=== PATIENT | male | born 1940 | race Caucasian/White ===

== ENCOUNTER 2017-03-02 22:03 | Emergency (ER) | payer OTHER ==
[2017-03-02] MEDS ORDERED: CEPHALEXIN 500 MG CAP PO ONE ×2 (23:32→23:33)
[2017-03-02] MEDS ORDERED: SULFAMETHOX/TMP 800/160 MG 1 TAB PO ONE (23:34)
--- NOTE | 2017-03-02 23:35 | EDPHY ---
H & P Stated Complaint: bug bite yesterday blistered and worsening Time Seen by Provider: 03/02/17 23:29 HPI/ROS: Chief Complaint: Bee sting left foot, swelling, redness HPI: 76-year-old male got stung on the left ankle yesterday afternoon by a bee. Today's had increasing redness and swelling had some blisters. He palpable rhythm. No fevers or chills. No spreading up his leg. Has not had a reaction like this in the past. Has had several bee stings in the last 2 days. ROS: 10 point Review of Systems is negative except as noted in the HPI. Social History: [No] smoking, [no] alcohol, [ no recreational drug use] Family History: [non-contributory] Physical Exam: General: Awake, alert, no acute distress Left ankle, he has got erythema with 2 intact bullae M1 ruptured bullae. Erythema is not circumferential. Is on the lateral aspect of his left ankle. There is no bony tenderness. Streaking up the leg. Skin: No rash - Personal History Current Tetanus/Diphtheria Vaccine: Yes Current Tetanus Diphtheria and Acellular Pertussis (TDAP): Yes - Medical/Surgical History Hx Asthma: No Hx Chronic Respiratory Disease: No Hx Diabetes: No Hx Cardiac Disease: Yes Hx Renal Disease: No Hx Cirrhosis: No Hx Alcoholism: No Hx HIV/AIDS: No Hx Splenectomy or Spleen Trauma: No Other PMH: moes. bypass 2002. hernia repair - Social History Smoking Status: Never smoked Constitutional: Initial Vital Signs Temperature (C) 36.9 C 03/02/17 22:22 Heart Rate 68 03/02/17 22:22 Respiratory Rate 18 03/02/17 22:22 Blood Pressure 145/82 H 03/02/17 22:22 O2 Sat (%) 94 03/02/17 22:22 O2 Delivery Mode Room Air Allergies/Adverse Reactions: No Known Allergies Allergy (Unverified 03/02/17 22:21) Home Medications: Medication Instructions Recorded Cephalexin [Keflex (*)] 500 mg PO Q6H #40 cap 03/02/17 Clarinex 03/02/17 Rosuvastatin Calcium 03/02/17 Sulfamethox/Tmp 800/160 mg 1 tab PO BID #20 tab 03/02/17 [Bactrim Ds] Tamsulosin HCl 03/02/17 Medical Decision Making ED Course/Re-evaluation: Patient presenting with erythema after her insect bite yesterday. This is likely localized reaction but with warmth and erythema will cover for possible skin infection with Keflex and Bactrim. Will follow up with primary care physician. Return if the redness continues to spread. Departure - Departure Disposition: Home, Routine, Self-Care Clinical Impression: Cellulitis Condition: Good Instructions: Cellulitis (ED) Additional Instructions: Follow up with primary care physician in 2-3 days for re-evaluation. Return to the emergency department the redness continues to spread up her leg, fevers, chills, or any other concerns. Please make sure to take her full course of antibiotics. Referrals: Rafael Cisneros, [Primary Care Provider] - As per Instructions Prescriptions: Cephalexin [Keflex (*)] 500 mg PO Q6H #40 cap Sulfamethox/Tmp 800/160 mg [Bactrim Ds] 1 tab PO BID #20 tab
[2017-03-03 01:47] VITALS: BP 134/81; PULSE 64; RESP 16; TEMP 98.2; O2SAT 97
== END 2017-03-02 23:52 | disposition home or self-care (01) ==
DX: L03.116 Cellulitis of left lower limb (principal)